=== PATIENT | male | born 1950 ===

== ENCOUNTER 2025-01-27 06:58 | Day surgery (SDC) | payer OTHER ==
[2025-01-21 09:00] VITALS: BP 180/78
[2025-01-21 09:29] LABS: URINE APPEARANCE Clear; URINE BILIRRUBIN Negative (NEGATIVE); URINE BLOOD Small; URINE COLOR Yellow; URINE GLUCOSE Negative (NEGATIVE); URINE KETONE Negative (NEGATIVE); URINE LEUKOCYTE Trace; URINE NITRATE Negative; URINE PROTEIN Negative (NEGATIVE); URINE UROBILINOGEN 0.2 E.U./dl
[2025-01-21 09:34] LABS: URINE BACTERIA 53.8 uL (0.0-1933); URINE EPITHELIAL CELLS 9.4 uL (0.0-38.8); URINE RBC 13.5 uL (0.0-20.8); URINE WBC 31.5 uL (0.0-23.2)
[2025-01-21 09:51] LABS: HEMATOCRIT 38.9 % (39.0-48.0); HEMOGLOBIN 12.9 g/dL (13-16.00); MEAN CELL VOLUME 83.8 fL (80.0-100.00); MEAN CORPUSCULAR HEMOGLOBIN 27.8 pg (27.00-32.0); MEAN CORPUSCULAR HGB CONC 33.1 g/dl (32.0-36.0); PLATELET COUNT 177 K/uL (150-450); RED BLOOD COUNT 4.64 M/uL (4.00-6.00); RED CELL DISTRIBUTION WIDTH 13.7 % (11.5-14.5)
[2025-01-21 09:56] LABS: INR 1.01; PARTIAL THROMBOPLASTIN TIME 24.8 SECONDS (22.0-34.0)
[2025-01-21 11:04] LABS: CALCIUM 9.1 mg/dL (8.5-10.1); CREATININE SERUM 0.84 mg/dL (0.70-1.30); GFR 88.84; POTASSIUM 3.95 mEq/L (3.5-5.1)
[~2025-01-27] VITALS: Ht 167.6 cm; Wt 57.6 kg
[~2025-01-27 06:58] MED LIST: COZAAR100 MG PO; ROSUVASTATIN CA20 MG PO
[2025-01-27] MEDS ORDERED: CEFAZOLIN SODIUM 1,000 MG VIAL ONE (08:52)
[2025-01-27] MEDS ORDERED: BUPIVACAINE HCL/MPF 0.5% 30ML VIAL ONE (08:58)
[2025-01-27] MEDS ORDERED: LIDOCAINE HCL 1%/EPINEPHRINE 20ML VIAL IJ ONE (08:59)
[2025-01-27] MEDS ORDERED: MIRALAX17 GM PO (09:31)
[2025-01-27] MEDS ORDERED: KETO10TA2 PO (09:31)
[2025-01-27] MEDS ORDERED: TYLENOL ARTHRI650 MG PO (09:31)
[2025-01-27] MEDS ORDERED: TRAMADOL HCL50 MG PO (09:31)
[2025-01-27] MEDS ORDERED: MORPHINE SULFATE 4 MG/ML VIAL IV ONE (12:10)
== END 2025-01-27 14:40 | disposition home or self-care (01) ==
LOC: CIR.AMB 06:58
PROVIDERS: ATTEND Surgery
DX: K40.90 Unilateral inguinal hernia, without obstruction or gangrene, not specified as recurrent (principal); K42.0 Umbilical hernia with obstruction, without gangrene
CPT/HCPCS: 49650; 49592; C1781